=== PATIENT | female | born 1990 | race Hispanic/Latino ===

== ENCOUNTER 2019-02-18 15:13 | Emergency (ER) | payer BC ==
[~2019-02-18] VITALS: Ht 157.5 cm; Wt 93.0 kg
--- NOTE | 2019-02-18 16:25 | NUR ---
US CALLED 40 MIN ETA
--- NOTE | 2019-02-18 17:00 | NUR ---
US AT BEDSIDE
--- NOTE | 2019-02-18 17:40 | Diagnostic Imaging Report ---
Exam: Pelvic ultrasound. History: Vaginal bleeding Comparison: None Findings: Exam is limited due to bowel gas and patient body habitus. The bladder also continued filling during the exam. Transvaginal sonographic evaluation of the pelvis. The uterus is anteverted in position, measuring 6.2 x 3.0 x 3.4cm. No intrauterine masses. Endometrial stripe thickness is 7 millimeters. The right ovary measures 2.9 x 2.2 x 2.0 cm and appears unremarkable. The left ovary was not visualized due to bowel gas. No free fluid in the pelvis. Impression: Difficult exam due to bowel gas and body habitus. Endometrial thickness of 7 mm is within normal limits for a premenopausal woman. Normal right ovary. Nonvisualization of left ovary due to bowel gas. Signed by: Nilda Neumann MD on 02/18/2019 5:37 PM
[2019-02-18 18:39] VITALS: BP 121/68
== END 2019-02-18 18:41 | disposition home or self-care (01) ==
LOC: FSED 15:13 → EDBD 15:13 → FSED 18:41
DX: N93.8 Other specified abnormal uterine and vaginal bleeding (principal); Z85.41 Personal history of malignant neoplasm of cervix uteri
CPT/HCPCS: 76830; 80053; 81003; 81025; 85025; 99284